=== PATIENT | male | born 1950 | race Caucasian/White ===

== ENCOUNTER → 2022-04-25 16:06 | Outpatient (CLI) | payer OTHER, SELFPAY ==
[2022-04-25 17:22] LABS: Add Manual Diff / Slide Review NO; Basophils Absolute Auto 0 /uL (0-100); Basophils Percent Auto 0.8 % (0-2); Eosinophils Absolute Auto 100 /uL (0-450); Eosinophils Percent Auto 2.1 % (2-4); Hematocrit 47.4 % (41-53); Hemoglobin 16.3 g/dL (13.5-17.5); Lymphocytes Absolute Auto 1500 /uL (1100-4500); Lymphocytes Percent Auto 29.2 % (25-40); Mean Corpuscular HGB Conc 34.4 % (30-36); Mean Corpuscular Hemoglobin 29.5 PG (26-34); Mean Corpuscular Volume 85.7 fL (80-100); Monocytes Absolute Auto 400 /uL (0-900); Monocytes Percent Auto 8.1 % (3-14); Neutrophils Absolute Auto 3000 /uL (1500-7000); Neutrophils Percent Auto 59.8 % (50-75); Platelet Count 186 X10^3/uL (150-400); Red Blood Cell Count 5.53 X10^6/uL (4.5-5.9); Red Cell Distribution Width 15.5 % (11.6-14.8)
[2022-04-25 17:26] LABS: BUN Creatinine Ratio 13.3 (6-22); Blood Urea Nitrogen 12 mg/dL (9-20); Calcium 9.2 mg/dL (8.4-10.2); Carbon Dioxide 30 mmol/L (22-32); Chloride 100 mmol/L (98-107); Estimated Glomerular Filt Rate > 60 mL/min (>60); Glucose 96 mg/dL (80-110); HEMOLYSIS < 15 (0-50); Potassium 3.9 mmol/L (3.4-5.1); Sodium 136 mmol/L (137-145)
[2022-04-25 18:24] LABS: Hemoglobin A1C% w Est Avg Glu 5.6 % (4.0-6.0)
== END ==
PROVIDERS: Referring Provider Orthopaedic Surgery; Visit Provider Orthopaedic Surgery
DX: Z01.818 Encounter for other preprocedural examination (principal); R73.9 Hyperglycemia, unspecified; M25.551 Pain in right hip; Z01.812 Encounter for preprocedural laboratory examination
CPT/HCPCS: 36415; 80048; 83036; 85025; 93005

== ENCOUNTER → 2022-04-29 12:18 | Outpatient (CLI) | payer OTHER, SELFPAY ==
[2022-04-29 13:14] LABS: COVID19 -Nasal RAPID Negative (Negative)
== END ==
PROVIDERS: Referring Provider Orthopaedic Surgery; Visit Provider Orthopaedic Surgery
DX: Z20.822 Contact with and (suspected) exposure to COVID-19 (principal)
CPT/HCPCS: 87635; C9803

== ENCOUNTER 2022-05-02 12:41 | Day surgery (SDC) | payer OTHER, SELFPAY ==
[2022-05-02] VITALS (10 sets, daily range): BP systolic 124–157; BP diastolic 60–80; PULSE 69–96; RESP 12–18; TEMP 36.1–36.8; O2SAT 93–99; BMI 27.1
--- NOTE | 2022-05-02 06:00 | DI.RAD.S_ITS ---
PROCEDURE: XR SHOULDER LT 1V INDICATIONS: prosthesis placement TECHNIQUE: 1 views of the shoulder were acquired. COMPARISON: None. FINDINGS: Bones: Interval placement of left shoulder arthroplasty with prosthetic components in expected positions. No periprosthetic fractures or evidence of loosening/infection. Mild acromioclavicular joint degeneration. Soft tissues: No suspicious soft tissue calcifications. IMPRESSION: Interval placement of left shoulder arthroplasty with prosthetic components in expected positions. Dictated by: Papito Rhodes Ines Interpreted: Adrian Vega MD on 05/02/2022 at 16:58 Transcribed by: VENECIA on 05/02/2022 at 17:00 Approved by: Adrian Vega M.D. on 05/02/2022 at 17:01
[2022-05-02] MEDS: LACTATED RINGERS 1,000 ML 42 ML IV (13:01)
[2022-05-02] MEDS: PREGABALIN 75 MG CAPSULE PO (13:30)
[2022-05-02] MEDS: ACETAMINOPHEN 325 MG TABLET 975 MG PO (13:30)
[2022-05-02] MEDS: CELECOXIB 200 MG CAPSULE PO (13:31)
--- NOTE | 2022-05-02 13:45 | PM.PREOP ---
Pre-operative Note COVID-19 COVID-19 status: Negative Result date/Date tested (Pos, Neg/Pending): 04/29/22 Interval Note History & Physical reviewed/Exam performed by Physician: Yes Changes to H&P: No
--- NOTE | 2022-05-02 14:27 | SUR.PREOP ---
Block start time [1410] . Monitoring initiated and maintained throughout procedure. Oxygen and medications given per anesthesiologist instructions. Patient remained stable throughout procedure, no adverse reactions noted. Block end time 1419.
[2022-05-02] MEDS: CEFAZOLIN 2 GM/20 ML SYRINGE IV (14:39)
[2022-05-02] MEDS: TRANEXAMIC ACID 1,000 MG VIAL 1000 MG INJ ×2 (14:42→15:57)
--- NOTE | 2022-05-02 14:58 | SUR.OPER ---
Beach chair with Schlein shoulder positioner. Lower body on padded OR bed. Head in foam padded head cradle, secured with straps. Non-operative arm secured <90 degrees abduction. Pillow under knees. Safety belt at thigh. Cloth tape over chest and over blanket over lower legs.
[2022-05-02] MEDS: BUPIVACAINE 0.5% W/ EPI (PF) 30 ML VIAL INJ (15:08)
--- NOTE | 2022-05-02 16:21 | PM.OP.1 ---
Operative Date/Time/Diagnoses Date of procedure: 05/02/22 Time of procedure: 16:21 Pre-op diagnosis: Left shoulder posterior fracture dislocation Post-op diagnosis: same Procedure & Clinicians Procedure: Left shoulder reverse total shoulder replacement Same procedure as scheduled: Yes Indications: The patient is a 71-year-old man who was carrying a neighbor on his shoulders when they fell. He suffered a posterior fracture dislocation of the left shoulder with a locked dislocation. There was a substantial defect in the humeral head and replacement was indicated. The risks discussed included but were not limited to failure to improve, instability, lengthening of the arm, weakness, nerve damage, infection, deep venous thrombosis, pulmonary embolism, stroke, myocardial infarction, permanent paralysis and . Surgeon: Mahendra Powers Vehicle Damage Appraiser: Corine Nevarez Operative Notes Findings: Locked posterior dislocation with impaction fracture with complete loss of bone structure of the anterior 40% of the humeral head with a large fracture of the lesser tuberosity exiting on the lateral side of the bicipital groove. Closure Type: primary Specimen(s): none sent Prosthetic devices, grafts, tissues, transplants, or devices: Implants used in this procedure manufactured by the [employer] and included an RSP reverse total shoulder system with a 30 mm screw length glenoid base plate, for locking screws with 3 measuring 22 mm and the 4th measuring 14 mm in length a 32 mm neutral glenoid head with retaining screw, a 12 mm small shell humeral stem and a small socket insert 32 mm neutral +4 E +polyethylene. Applied: implant(s) Estimated Blood Loss (mL): 200 Blood products transfused: none Procedure in detail: The patient was seen in the preoperative area where they identified the left shoulder as the operative site and this was marked with my initials. They received preoperative antibiotics and underwent the induction of an interscalene block. They were taken to the operating room and placed on the operating room table in a supine position with the underwent the induction of a general anesthetic. There were then repositioned in the ?beach chair? position using a dedicated positioner. All pressure points were well padded. The knees were slightly bent to prevent tension on the sciatic nerves. The left arm was prepared from the fingertips to the base of the neck with ChloraPrep in the usual fashion and draped through sterile drapes. An approximately 15 cm incision was created starting at the clavicle just above the coracoid and going to the deltoid insertion. The deltopectoral interval was used to access the shoulder taking the vein to the lateral side. The vein was protected throughout the case. The rotator interval was identified and used as a guide to releasing the subscapularis. The shoulder was relocated by placing my finger through the rotator interval and pulling lateral traction on the humeral head to unlock it from the glenoid and then externally rotating the shoulder. The biceps was tenodesed over the pectoralis tendon using a suture. The subscapularis was tagged for possible later repair. The shoulder was dislocated anteriorly and a proximal humeral osteotomy performed using an extramedullary guide. The impacted portion of the humeral head was inspected and loose fragments removed. The lesser tuberosity fragment was impacted onto the greater tuberosity and left in place. A proximal humeral protector was then placed. Retractors were placed access the glenoid. A 360 degree release was performed of the subscapularis with care being taken to protect the axillary nerve. The soft tissues were removed circumferentially around the glenoid. The guide was used to drill the guide hole in the center of the inferior glenoid. The tap was placed and used as a guide for the reamer. The tap was then removed and the glenoid base plate inserted. The peripheral locking screws were then placed through the appropriate guide. A trial glenoid head was applied. We then turned our attention to the humerus. The proximal humeral protector was removed. Cylindrical reamers were used to size the canal. Broaching was then performed beginning with a small broach and working up until a line to line fit with the reamer was obtained. The guide for the proximal metaphyseal reamer was then applied and the metaphysis was reamed appropriately, the small Reamer was used due to the destruction of the proximal humerus and the need to maintain some bony contact for rotational stability.. The trial metaphyseal portion of the body was then applied to the broach. Trial reductions were performed and the size of the glenoid head and the cup were optimized. Stability was checked in maximal internal and external rotation and range of motion was checked to allow access to the top of the head, internal rotation to an excess of 50? in the ?scarecrow position? and the ability to reach the groin. The appropriate final prosthetic components were then opened. The glenoid head was impacted into position and checked for rotational and axial stability before placing the set screw. The humeral prosthetic was then impacted into position. The humeral cup was placed. The joint was relocated and irrigated. The subscapularis was not repaired as the lesser tuberosity fragment was impacted on but not attached to the greater tuberosity and due to the lateralization of the prosthetic this would substantially limit his external rotation. The deltopectoral interval was reapproximated with 0 Vicryl. Subcutaneous layer was closed with interrupted 3-0 Vicryl and skin with a running 3 0 V lock suture. Subcutaneous tissues were then infiltrated with 0.5% Marcaine for postoperative pain control. An Aquacel Ag dressing was applied and the patient's arm was placed in a sling. The patient was then transferred to the recovery room in good condition having tolerated the procedure well. The services of a skilled assistant guest services manager were necessary to provide retraction, positioning of the arm and visualization. Exposure of the glenoid would not have been possible without the skilled services of Ms. Nevarez. Complications: none Post-operative Condition: stable Disposition: PACU Plan for aftercare: The patient will be maintained in the hospital overnight for pain control. He will be allowed to use his left arm in front of his body below shoulder level to lift 1-2 lb. He likely will be discharged tomorrow.
--- NOTE | 2022-05-02 16:42 | SUR.PHASEI ---
05/02/[id number] off to [facility] in [place]. Patient arousing to voice more. xray called back . aware they are on the way.
[2022-05-02] MEDS: ACETAMINOPHEN 325 MG TABLET 650 MG PO (17:24)
[2022-05-02] MEDS: LACTATED RINGERS 1,000 ML 100 ML IV (17:24)
[2022-05-02] MEDS: IBUPROFEN 400 MG TABLET PO (17:24)
[2022-05-02] MEDS: DOCUSATE 100 MG CAPSULE PO (20:59)
[2022-05-03] MEDS: IBUPROFEN 400 MG TABLET PO ×2 (03:45→09:59)
[2022-05-03 04:00] VITALS: BP 127/62; PULSE 77; RESP 17; TEMP 36.1; O2SAT 96
[2022-05-03] MEDS: OXYCODONE IR 5 MG TABLET PO ×2 (06:03→09:43)
[2022-05-03] MEDS: ACETAMINOPHEN 325 MG TABLET 650 MG PO (06:47)
[2022-05-03 07:39] LABS: Hematocrit 44.5 % (41-53)
--- NOTE | 2022-05-03 07:53 | PM.DS.1 ---
History of Present Illness History of Present Illness Date Patient Seen: 05/03/22 Time Patient Seen: 07:53 Chief complaint: OPB Narrative: Patient is complaining of moderate left shoulder pain this morning. His is at bedside. He notes the numbness in his fingers is improving, his small and ring finger are almost back to normal but his thumb index and middle finger are still relatively numb. He does feel this is improving. He notes he has not passed gas yet, but he has not been up and out of bed. Overall feeling good and would like to be discharged home today. Discharge Providers Provider Discharge Date: 05/03/22 Primary care physician: mohsen morales Consults: 05/02/22 17:02 Consult to Discharge Planning Routine Comment: Consult to Physical Therapy Evaluate & Treat Comment: Physician Instructions: pendulums, PROM 90 FF, 0 ER, 0 ABD, IR to body Discharge provider: Corine Nevarez PA-C Summary Hospital Course Discharge Diagnosis: Left shoulder posterior fracture dislocation Hospital Course: Operative Date/Time/Diagnoses Date of procedure: 05/02/22 Time of procedure: 16:21 Procedure & Clinicians Procedure: Left shoulder reverse total shoulder replacement Same procedure as scheduled: Yes Indications: The patient is a 71-year-old man who was carrying a neighbor on his shoulders when they fell.? He suffered a posterior fracture dislocation of the left shoulder with a locked dislocation.? There was a substantial defect in the humeral head and replacement was indicated.? The risks discussed included but were not limited to failure to improve, instability, lengthening of the arm, weakness, nerve damage, infection, deep venous thrombosis, pulmonary embolism, stroke, myocardial infarction, permanent paralysis and . Surgeon: Mahendra Powers Chief Cardiopulmonary Technologist: Corine Nevarez Operative Notes Findings: Locked posterior dislocation with impaction fracture with complete loss of bone structure of the anterior 40% of the humeral head with a large fracture of the lesser tuberosity exiting on the lateral side of the bicipital groove. Closure Type: primary Specimen(s): none sent Prosthetic devices, grafts, tissues, transplants, or devices: Implants used in this procedure manufactured by the [employer] and included an RSP reverse total shoulder system with a 30 mm screw length glenoid base plate, for locking screws with 3 measuring 22 mm and the 4th measuring 14 mm in length a 32 mm neutral glenoid head with retaining screw, a 12 mm small shell humeral stem and a small socket insert 32 mm neutral +4 E +polyethylene. Applied: implant(s) Estimated Blood Loss (mL): 200 Blood products transfused: none Status at Discharge Cognitive/behavioral status at discharge: at baseline, oriented Overall status at discharge: patient is progressing back to baseline Exam Vital Signs (past 8 hours): - 05/03/22 04:00 Temperature 97 F L Pulse Rate 77 Respiratory Rate 17 Blood Pressure 127/62 Pulse Oximetry 96 Oxygen Delivery Method Room Air Oxygen Flow Rate 0 Narrative Exam Narrative: Pleasant 71-year-old male, resting comfortably in bed, no acute distress. Dressing is clean, dry, intact. Bilateral upper extremity: Motor functions are grossly intact it including finger intrinsics wrist flexion and extension. He has decreased sensation left hand compared to right. Sling is in place. Objective Labs Result Diagrams: 05/03/22 06:35 PFSH Social History household members: significant other Smoking Status: Never smoker alcohol intake: current Discharge Assessment & Plan Assessment and Plan Assessment: Left shoulder posterior fracture dislocation Plan of Treatment: -He will be allowed to use his left arm in front of his body below shoulder level to lift 1-2 lb.? Encourage pendulum exercises for home -continue with multimodal pain management -aspirin 81 mg twice daily x6 weeks for DVT prophylaxis -DC home today once passing gas Discharge Plan Discharge Plan Patient Disposition: Home Discharge orders & Medications Discharge Orders: Discharge (Order); Ordered 05/03/22 Ordered By: Corine Nevarez Prescriptions: New acetaminophen 500 mg capsule 500 mg PO Q4H MDD Max 3000 mg per day PRN (Reason: fever or pain) Qty: 90 0RF aspirin 81 mg Tablet,Delayed Release (Dr/Ec) 81 mg PO BID 42 Days Qty: 84 0RF Rx Instructions: To prevent blood clots docusate sodium 100 mg Capsule 100 mg PO BID PRN (Reason: Constipation from narcotic pain meds) Qty: 30 0RF ibuprofen 400 mg Tablet 400 mg PO Q4HR MDD Max 2400 mg per day PRN (Reason: Pain/inflammation) Qty: 90 0RF oxycodone 5 mg Tablet See Rx Instructions .ROUTE .COMPLEX PRN (Reason: Pain, Moderate (4-6)) Qty: 42 0RF Rx Instructions: Take 1-2 tablets by mouth every 4 hours as needed for moderate to severe postop pain Follow up/Referrals: mohsen morales [Other] Mahendra Powers MD [Physician] - (10-14 days for postoperative visit) Diet/Activity/Treatments Diet: Diet as Tolerated Other treatments: Medications: -Aspirin 81mg twice daily x6 weeks to prevent blood clots. -OTC Tylenol 500 mg 1 tablet every 4 hours as needed for pain/fever. Max 6 tablets per day. -Ibuprofen 400mg 1 tablet every 4 hours as needed for pain/inflammation. Max 2,400mg per day. -Oxycodone 5 mg take 1-2 tablets every 4 hours as needed for moderate-severe pain (narcotic pain medication). -As needed medications: -Ducolax and /or MiraLax as needed for constipation from narcotic pain medications. -Pepcid AC as needed for stomach upset (usually from aspirin or ibuprofen). Dressing/Wound care: -Keep Aquacell dressing in place until postoperative follow-up office visit. -Okay to shower. Keep wound out of direct water stream. No soaking or submerging until all the scabs fall off (approximately 6 weeks). -Please call the office if dressing becomes wet, soiled, or saturated. Activities: -Maintain standard reverse total shoulder protocol: -OK to use your hand in front of your body, below shoulder level; ok to lift 1-2 lb for the first several weeks. Your activities will be advanced by physical therapy. -Continue with sling. -Continue with home exercises as directed by your physical therapist, including Codman/pendulum exercises. -Ice your incision as needed for pain/inflammation/swelling. Protect your skin with a folded pillowcase. -Incentive Spirometer (breathing device from hospital): 5-10xs every hour while awake for the first 1-2 weeks. Follow-up: -Follow-up with your surgeon or PA in the office in 10-14 days after surgery. -Follow-up with your surgeon 6 weeks postoperatively. Call the office if you have chest pain, shortness of breath, significant swelling that will not resolve with elevating, fever over 101?, significantly worsening pain, or are concerned you might need to go to the Emergency Room. [facility]: [phone] Skin/Wound/Dressing Care Report to your healthcare provider any signs of infection, such as:: chills, fever, night sweats, unusual drainage and unusual redness Visit Report/Discharge Packet Instructions: DI for Shoulder Replacement Stand Alone Forms: Surgery Discharge Discharge Data Primary Care Provider: mohsen morales Attending Provider: Mahendra Powers
[2022-05-03 08:27] VITALS: BP 163/68; PULSE 73; RESP 16; TEMP 36.9; O2SAT 97
--- NOTE | 2022-05-03 09:57 | PM.PROC.1 ---
Procedures Date/Time Date of procedure: 05/02/22 Time of procedure: 14:15 Nerve Block Time out performed: Yes Local anesthetic used: other (15mL 0.5% Ropivacaine, 5mL 2% Lidocaine) Location of anesthetic used: interscalene Amount of anesthesia used (mL): 20 Nerve blocks: brachial plexus (interscalene) Procedure successful: Yes Patient tolerated procedure: well Complications: none Additional comments: Brachial plexus nerve block for post operative pain management. Risks and benefits discussed, including bleeding, infection, intravascular injection, nerve damage, block failure, phrenic N. block. Standard ASA monitors, NC O2. Pt supine. Chloroprep site preparation, sterile technique. Brachial plexus identified with US guidance, traced from supraclavicular to interscalene. 1mL 2% lidocaine skin wheal. 22g x 50mm Pajunk advanced with in-plane US guidance to brachial plexus. Negative aspiration. LA injected with intermittent negative aspiration. Good LA spread noted on US. No pain, no paraesthesia. Pt tolerated procedure well. Vital signs stable.
[2022-05-03] MEDS: ASPIRIN EC 81 MG TABLET PO (09:59)
[2022-05-03] MEDS: DOCUSATE 100 MG CAPSULE PO (10:02)
--- NOTE | 2022-05-03 10:25 | PT.IIE ---
Current Diagnoses Displaced fracture of lesser tuberosity of left humerus, initial encounter for closed fracture (05/02/22) Posterior subluxation of left humerus, initial encounter (05/02/22) Surgery Performed Operation Date: 05/02/22 14:00 Actual Procedures p Total Shoulder Arthroplasty - Reverse(Left) - Mahendra Powers MD Physical Therapy Inpatient Evaluation/Re-Eval M1 PT/OT-IP Prior Functional Status Start: 05/03/22 12:25 Freq: NEEDED Status: Active Protocol: Document 05/03/22 10:25 AB (Rec: 05/03/22 12:47 AB [email or web address]) Medical Review Prior Functional Status Medical History Reviewed Yes Communication able to make needs known Mobility and Gait pt stated that he is independent with all mobilities and ambulation without AD Social History Household Members spouse Living Arrangements House Number of Floors (Floors) One Floor Number of Stairs To Enter/Railing? currently renting an Air B[employer]B and will be discharging there no steps to enter 7+landing + 7 steps to get to main living are with L rail ascending Home Environment Standard Height Toilet,High Toilet,Walk in Shower,Built-In Shower Seat Home Equipment Grab Bars In Shower M2 PT-IP Current Condition Start: 05/03/22 12:25 Freq: NEEDED Status: Active Protocol: Document 05/03/22 10:25 AB (Rec: 05/03/22 12:47 AB [email or web address]) Physical Therapy Current Condition Current Condition Evaluation Date 05/03/22 Treatment Diagnosis s/p L TSA reverse; difficulty in walking Onset Date 05/02/22 M3 PT-IP Subjective Start: 05/03/22 12:25 Freq: NEEDED Status: Active Protocol: Document 05/03/22 10:25 AB (Rec: 05/03/22 12:47 AB [email or web address]) Subjective Physical Therapy Visit Type Type Initial Evaluation Visit Start Time 10:25 Visit Stop Time 11:01 Total Visit Minutes 36 Number of BOOM STICK WORKER Visits 0 Physical Therapy Visit Comments Patient Comments agreeable to do PT M4 PT-IP Mobility and Gait Start: 05/03/22 12:25 Freq: NEEDED Status: Active Protocol: Document 05/03/22 10:25 AB (Rec: 05/03/22 12:47 AB [email or web address]) PT-Bed Mobility Assessment Supine to Sit Supine to Sit Independent Sit to Supine Sit to Supine Independent PT-Transfer Assessment Sit to and From Stand Sit to and from Stand Independent Equipment Transfer Assistive Device None Orthotic/Prosthetic Devices or Brace: Yes Transfers Transfer Destination Bed Transfer Technique ambulated Transfer Ability Level of Assist Independent Comments Mobility Comments pt up and standing with spouse in room. agreed to do PT. educated pt and spouse regarding shoulder precautions , pendulum exercises, elbow/ wrist/hand exercises. educated pt and spouse with sling management. pt attempted to complete pendulum but only able to assume position and not safely complete the exercise. completed elbow/wrist/hand exercises. spouse was able to assist pt with sling management. pt completed sit to stand from EOB independent and ambulated to EOB ~ 10 ft without AD independent and completed sit< >supine independent. agreed to walk in the hallway and do stairs. completed ambulation in the hallway without AD ~ 150 ft modified independent. presents with RLE external rotation with ambulation but without LOB. Stair climbing: pt stated that he has R side wall to hold on to for ascending and completed SBA. used R rail descending down steps SBA. completed x 4 reps. ambulated back to his room without AD mod I. Pt sat on EOB. Pt and spouse without further concerns. Gait Assessment Gait Gait Assistance Required: Independent Distance (Feet) 150 Able to Maintain Weight Bearing Status Yes During Gait Assistive Devices Assistive Device None Orthotic/Prosthetic Devices or Brace: Yes Factors Limiting Gait Function Factors Limiting Gait Function Decreased Sensation,Pain,Poor Balance Stair Climbing Assessment Evaluation Level of Assist On Stairs Standby Assistance Devices Stair Climbing Assistive Devices Left Railing Comments Stair Climbing Comments pls refer to mobility section for details PT-Balance Assessment Sitting Balance and Reactions Static Sitting Balance Ability Normal Dynamic Sitting Balance Ability Normal Standing Balance and Reactions Static Standing Balance Ability Good Dynamic Standing Balance Ability Good Device Used without AD M5 PT-IP Objective Assessments Start: 05/03/22 12:25 Freq: NEEDED Status: Active Protocol: Document 05/03/22 10:25 AB (Rec: 05/03/22 12:47 AB [email or web address]) Orientation Orientation/Cognition Level of Alertness Alert Orientation Name,Place,Situation Language Function Ability No Deficits Noted Safety Awareness Decreased Safety Awareness Memory Description No Deficits Noted Sensation Assessment Sensation Gross Sensation Left UE Impaired Sensation Description Numbness Comments Sensation Comments still has slight numbness and decreas motor control on LUE Muscle Tone Muscle Tone WNL Yes M6 PT-IP Treatment Start: 05/03/22 12:25 Freq: NEEDED Status: Active Protocol: Document 05/03/22 10:25 AB (Rec: 05/03/22 12:47 AB [email or web address]) Physical Therapy Treatment Exercises Exercises Shoulder Pendulums,Shoulder Flexion,Elbow Flexion/ Extension,Wrist ROM,Hand ROM Education Education Provided Precautions,Weight Bearing Status,Post-Op Packet,Safety M7 PT-IP Assessment and Plan Start: 05/03/22 12:25 Freq: NEEDED Status: Active Protocol: Document 05/03/22 10:25 AB (Rec: 05/03/22 12:47 AB [email or web address]) PT Summary Assessment and Plan Potential Rehabilitation Potential Good Status of Condition at Evaluation Stable Summary Impairments Pain,ROM,Strength,Balance, Coordination,Sensation,Bed Mobility,Transfers,Gait, Activity Tolerance Assessment Summary Pt is modified independent with ambulation without AD, SBA for stair cimbing. caregiver training conducted and spouse able to manage sling for pt. pt plans to go home and spouse to assist. pt will require out PT. pt may go home when medically stable. Goals Other Goals up/down 15 steps without AD mod I Days to Meet Goals 3 Frequency of Treatment Frequency Of Treatment Twice a Day Treatment Plan Physical Therapy Treatment Plan Bed Mobility Training,Transfer Training,Gait Training, Therapeutic Exercise,Balance Retraining,Post Op Education, Discharge Planning,Hot or Cold Pack,Neuromuscular Re-ed, Coordination Retraining,Manual Therapy Precautions Shoulder Precautions Sling,PROM,Internal Rotation to Body,No External Rotation, No Abduction,Forward Flexion to 90 degrees,Pendulums Weight Bearing Status Weight Bearing Status Non-Weight Bearing Allowed Weight Bearing Amount (enter % LUE NWB or #) (%) Recommendations To Nursing Amount of Assist Needed Standby Assistance Discharge Recommendations PT Discharge Recommendations Home with Assistance, Outpatient PT Transportation Needs at Discharge Private Vehicle
--- NOTE | 2022-05-03 10:58 | PC.NURSE ---
Pt received discharge orders this am. Med @ 1030 for discomfort w/ good relief. HL discontinued intact Working w/ PT D/C instructions given Pt escorted via W/C by staff to waiting vehicle D/C in stable post op course.
--- NOTE | 2022-05-03 13:00 | CM.DANOTE ---
DCP Assessment: Payor: Jonathan PCP: Unknown Pt is a 71 y.o. M who had surgery for a humeral fracture dislocation and a total shoulder replacement surgery. Pt has no significant PMH. Pt had surgery on 05/02/[address] Powers. DCP unable to assess pt today due to pt being discharged before DCP could do her assessment. Per medical chart, pt worked with PT and they recommend home with assistance as pt was a standby assist. Pt was taken down by wheelchair to a vehicle who had picked up the patient. Per notes, pt d/c in stable condition. No needs for DCP. 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 Yes Advance Directives on File No History Provided By Medical Record Prior Living Arrangements House Household Members spouse Discharge Plan Home Comment Pt discharged by the time DCP could assess. Review Status In Process Please Provide Date Initial DC 05/03/22 Assessment Was Performed Next Review Type Continued Stay Review
== END 2022-05-03 11:05 | disposition home or self-care (01) ==
LOC: OR 12:47 → AC 17:19
PROVIDERS: Referring Provider Orthopaedic Surgery; Visit Provider Orthopaedic Surgery
PROC: (CPT 23472; principal; 2022-05-02 14:00)
DX: S43.022A Posterior subluxation of left humerus, initial encounter (principal); S42.262A Displaced fracture of lesser tuberosity of left humerus, initial encounter for closed fracture; W18.30XA Fall on same level, unspecified, initial encounter
CPT/HCPCS: 23472; 36415; 64415; 73020; 85014; 85018; 97161; C1776; J0690; J1100; J2250; J2405; J2704; J3010